=== PATIENT | female | born 1940 | race Hispanic/Latino ===

== ENCOUNTER 2017-11-20 08:26 | Day surgery (SDC) | payer MEDICARE ==
[~2017-11-20] VITALS: Ht 157.5 cm; Wt 116.5 kg
[~2017-11-20 08:26] MED LIST: ALEN70TA47 PO; ATOR10TA69 PO; CHOL100040 PO; INSLAN SQ; INSU100V SQ; LEVO112T7 PO; LEVO75TA10 PO; METF10004 PO; SODIUM CHLORIDE 0.9% 1000ML 1,000 ML IV ONE
[2017-11-20 08:46] VITALS: BP 194/67
[2017-11-20] MEDS ORDERED: METO50TA18 PO (09:20)
[2017-11-20] MEDS ORDERED: VALS160T29 PO (09:20)
== END 2017-11-20 10:45 | disposition home or self-care (01) ==
LOC: DAH 08:26 → ENDO 08:26 → EDSTATUS 15:44
PROVIDERS: ATTEND Internal Medicine Gastroenterology
DX: K29.50 Unspecified chronic gastritis without bleeding (principal); E11.9 Type 2 diabetes mellitus without complications; E03.9 Hypothyroidism, unspecified; D64.9 Anemia, unspecified; K31.89 Other diseases of stomach and duodenum; I10 Essential (primary) hypertension; E78.00 Pure hypercholesterolemia, unspecified; K21.9 Gastro-esophageal reflux disease without esophagitis; Z79.899 Other long term (current) drug therapy; Z90.49 Acquired absence of other specified parts of digestive tract; Z98.890 Other specified postprocedural states
CPT/HCPCS: 43239; 82948 ×2; 88305; 88312; A4606; J7030